=== PATIENT | female | born 1990 | race Caucasian/White ===

== ENCOUNTER 2019-10-22 18:19 | Emergency (ER) | payer OTHER, SELFPAY ==
[2019-10-22 18:27] VITALS: BP 103/70; PULSE 132; RESP 14; TEMP 36.8; O2SAT 97
--- NOTE | 2019-10-22 18:30 | ED.URI ---
HPI - URI/Sore Throat General Chief Complaint: Upper Respiratory Infection Stated Complaint: headache and nausea Time Seen by Provider: 10/22/19 18:30 Source: patient and RN notes reviewed History of Present Illness HPI Narrative: Patient is a 29-year-old female presents the urgent care with complaints of headache, nausea, dizzy, chills, sweats. Patient states that started on Tuesday and she is developed a deep cough with body aches. Patient has been using DayQuil and Excedrin for symptoms. Also reports of ringing and muffled hearing. Patient denies any known exposure to strep or flu. Currently denies any known fevers. Denies of any vomiting. Denies abdominal pain or urinary symptoms. No other acute complaints. Patient does appear to be slightly pale and fatigued. Patient aware of the plan of care. Related Data Home Medications Medication Instructions Recorded Confirmed No Home Medications 10/22/19 10/22/19 Allergies Allergy/AdvReac Type Severity Reaction Status Date / Time No Known Allergies Allergy Verified 10/22/19 18:38 Review of Systems Review of Systems: Narrative: CONSTITUTIONAL: Reports of chills, sweats, and fatigue EYES: Denies visual changes, redness, or discharge. ENT: D reports of bilateral otalgia with sore throat and postnasal drainage CARDIOVASCULAR: Denies chest pain, palpitations, or edema. RESPIRATORY: Reports a deep nonproductive cough without dyspnea GASTROINTESTINAL: Denies abdominal pain, nausea, vomiting, or diarrhea. GENITOURINARY: Denies dysuria or hematuria. SKIN: Denies rash or itching. MUSCULOSKELETAL: Denies back pain, joint pain; reports of body aches NEUROLOGIC: Denies headache, numbness, or weakness. All other systems reviewed are negative, except as documented in HPI. [facility] Family History Family History (Updated 08/06/15 @ 15:02 by DOCTOR UNKNOWN) Mother Family history of liver disease Father Family history of throat cancer Acute myocardial infarction Other Carcinoma of colon Social History Social History Smoking status: Never smoker Alcohol intake: current Comments At the time of my signature, I reviewed and agree with the nursing past medical, surgical, social, and family history. There is no relevant family history pertinent to the patient complaint. Exam Narrative: Exam Narrative: GENERAL: This is a well-nourished, well-developed patient, appears slightly flushed/pale and fatigued HEAD: normocephalic, atraumatic. EYES: PERRL. Sclera clear/white. Vision is grossly intact. EARS: External ears normal, auditory canals clear and without drainage, TMs normal without perforation. Hearing grossly intact. NOSE: External nose normal with no obvious nasal discharge, bilateral erythemic nares with clear rhinorrhea. THROAT: Mucous membranes moist, posterior pharynx clear. Moderate postnasal drainage NECK: Neck supple, non-tender without lymphadenopathy CARDIOVASCULAR: Regular rate and rhythm without murmurs, gallops, or rubs. RESPIRATORY: Clear to auscultation. Breath sounds equal bilaterally. No wheezes, rales, or rhonchi. SKIN: warm, intact with no suspicious lesions or rash, good texture and turgor. NEURO: awake, alert, and oriented to person, place and time. There were no obvious focal neurologic abnormalities. EXTREMITIES: No clubbing, cyanosis, or edema. Course Vital Signs Vital signs: Vital Signs Temperature 98.2 F 10/22/19 18:27 Pulse Rate 132 H 10/22/19 18:27 Respiratory Rate 14 10/22/19 18:27 Blood Pressure 103/70 10/22/19 18:27 Pulse Oximetry 97 10/22/19 18:27 Temperature 98.2 F 10/22/19 18:27 Pulse Rate 118 H 10/22/19 18:58 Respiratory Rate 14 10/22/19 18:27 Blood Pressure 103/70 10/22/19 18:27 Pulse Oximetry 97 10/22/19 18:27 Reviewed MDM - URI/Sore Throat MDM Narrative Medical decision making narrative: Reviewed lab results with the patient. She is aware that her flu swab was negative. Aware that s
[2019-10-22 18:58] VITALS: PULSE 118
== END 2019-10-22 19:22 | disposition home or self-care (01) ==
PROVIDERS: Emergency Provider Nurse Practitioner Family
DX: B34.9 Viral infection, unspecified (principal)
CPT/HCPCS: 81003; 87081; 87804; 87880; 99213; G0463